=== PATIENT | female | born 1970 | race African-American/Black ===

== ENCOUNTER 2023-01-05 04:59 | Emergency (ER) | payer OTHER ==
[~2023-01-05] VITALS: Ht 162.6 cm; Wt 80.0 kg
[2023-01-05 05:04] VITALS: O2SAT 98
[2023-01-05] MEDS ORDERED: IBUPROFEN 600MG TABLET PO ONE (07:30)
[2023-01-05] MEDS ORDERED: POVIDONE-IODINE 10% TOPICAL SOLN 240ML TOP ONE (07:30)
[2023-01-05] MEDS ORDERED: TETANUS, DIPHTHERIA, PERTUSSIS VAC/PF 0.5ML (>10YR OLD) IM ONE (07:30)
[2023-01-05] MEDS ORDERED: LIDOCAINE HCL 1% 20ML VIAL (Pyxis) INJ INFIL ONE (07:30)
[2023-01-05] MEDS ORDERED: CEPH500C2 MT (09:59)
[2023-01-05 10:09] VITALS: BP 125/84; PULSE 60; RESP 18; TEMP 98.2
== END 2023-01-05 10:11 | disposition home or self-care (01) ==
LOC: ER 04:59
DX: S61.212A Laceration without foreign body of right middle finger without damage to nail, initial encounter (principal); G89.11 Acute pain due to trauma; Y08.89XA Assault by other specified means, initial encounter; Y93.89 Activity, other specified; Y92.89 Other specified places as the place of occurrence of the external cause; Y99.8 Other external cause status
CPT/HCPCS: 73120; 90715; 12002; 90471; 99283; J3490; Z7610 ×2